=== PATIENT | male | born 1970 | race Caucasian/White ===

== ENCOUNTER 2020-07-11 16:20 | Emergency (ER) | payer BC ==
--- OUTSIDE RECORDS SUMMARY | 2020-07-11 16:23 | XMS REPORT | Continuity of Care Document ---
:1970 Author Organization [facility] t Address [address] [place] [address] Dr. Saeed [address] [place] [id number] Care Team Providers Name Role Phone Lab, William Hanna I Attending Clinician Unavailable Problems This patient has no known problems. Allergies, Adverse Reactions, Alerts This patient has no known allergies or adverse reactions. Medications This patient has no known medications. Procedures This patient has no known procedures. Encounters Start End Encounter Admission Attending Care Care Encounter Source Date/Time Date/Time Type Type Clinicians Facility Department ID 2019-11-24 2019-11-24 Laboratory Lab, [facility] [id number] 16:24:10 16:44:10 Only William Pob I [facility] [id number] [place] [id number] Gal [phone] nal [address] Results This patient has no known results.
[2020-07-11 17:44] LABS: Absolute Lymphocytes (CBC) 2.2 K/uL (0.7-4.9); Basophils % 1.5 % (0-1.3); Hematocrit 47.4 % (39.6-49.0); Lymphocytes % 27.7 % (15.3-44.8); MPV 7.8 fL (7.6-11.3); RBC Red Blood Cell Count 5.38 M/uL (4.33-5.43)
[2020-07-11 18:03] LABS: Protime INR 0.97
--- NOTE | 2020-07-11 18:55 | RAD REPORT ---
EXAM DESCRIPTION: RAD - Chest Pa And Lat (2 Views) - 07/11/2020 5:18 pm CLINICAL HISTORY: DYSPNEA COMPARISON: None TECHNIQUE: Frontal and lateral views of the chest were obtained. FINDINGS: The lungs are underinflated. No dense consolidation in the right lung field or upper left lung field. Parenchymal stranding and patchy opacification in the lower left lung field present parti ally obscuring the left heart border. Finding is suspicious for a lingula pneumonia and can be correl ated with exam findings. No failure or volume overload. Trachea is midline. Heart size is normal and central vasculature is within normal limits. No pleural effusion or pneumothorax seen. No acute bony finding noted. No ao rtic abnormality. IMPRESSION: Suspected pneumonia in the lingula left upper lobe.
[2020-07-11] MEDS ORDERED: Levofloxacin 750mg IV 750 MG/150 ML BAG IV ONE (19:26)
[2020-07-11 19:29] LABS: ALT/SGPT 52 U/L (12-78); AST/SGOT 35 U/L (15-37); Albumin 3.7 g/dL (3.4-5.0); BUN Blood Urea Nitrogen 16 mg/dL (7-18); Bicarbonate 25 mmol/L (21-32); Bilirubin Direct < 0.1 mg/dL (0-0.2); Bilirubin Total 0.3 mg/dL (0.2-1.0); C-Reactive Protein 8.28 mg/L (<3.00); Ferritin 764.2 ng/mL (26-388); Glucose Level 113 mg/dL (74-106); NT PRO-BNP 36 pg/mL (<125); Potassium 3.8 mmol/L (3.5-5.1); Sodium Level 140 mmol/L (136-145); Troponin (Emerg Dept Use Only) < 0.02 ng/mL (0.0-0.045)
[2020-07-11 19:36] LABS: Alkaline Phosphatase ND U/L (45-117)
[2020-07-11 20:20] LABS: SARS-COV-2 RT PCR POSITIVE (NEGATIVE)
--- NOTE | 2020-07-11 20:38 | RAD REPORT ---
EXAM DESCRIPTION: CT - Thorax W/ Con - 07/11/2020 7:54 pm CLINICAL HISTORY: abnormal CXR;Pain COMPARISON: Chest Pa And Lat (2 Views) dated 07/11/2020 TECHNIQUE: Dynamically enhanced 5 mm thick images of the chest were obtained during administration o f 100 mL non-ionic IV contrast. All CT scans are performed using dose optimization technique as appropriate and may include automated exposure control or mA/KV adjustment according to patient size. FINDINGS: Airspace opacification is present in the posterolateral left midlung field extending into the lingula. Patchy airspace opacification present as well in the superior aspect of the left lower l obe with patchy airspace opacification present in the posterior to midportion of the right lower lobe and in the lateral aspect of the right middle lobe. No pleural thickening or pleural effusion. No pn eumothorax. No chest wall mass or abnormal axillary lymphadenopathy. No abnormal mediastinal or hilar mass or lymphadenopathy seen. IMPRESSION: Multifocal pneumonia changes are present most prominent in the midportion and lingula of the left upper lobe. Findings are not classically COVID-19 pneumonia but can be correlated with COVID testing. Bilateral n on COVID viral pneumonia is primary consideration. A multifocal bacterial pneumonia is possible but t his would be more atypical in presentation.
--- NOTE | 2020-07-11 20:47 | ER ---
Nurse's Notes [facility] Name: Mohinder Larson Age: 49 yrs Sex: Male : 1970 Arrival Date: 07/11/2020 Time: 16:24 Bed 6 Private MD: Diagnosis: SARS-associated coronavirus as the cause of diseases classified elsewhere;Unspecified bacterial pneumonia Presentation: 07/11 16:33 Chief complaint: Patient states: been sick since last Wednesday07/01/2020. Sore throat, ca1 coughing, chills. Had rapid Covid testing done 07/01/2020 negative. Another rapid Covid test done 07/03/2020, negative. Was on Tamiflu for Flu, completed. Still NOT feeling better. Wednesday was at my PCP and was prescribed Prednisone, Azithromycin, Albuterol inhaler, Benzonatate. Still having bad cough and when I cough, it's really hard to breathe. Coronavirus screen: Client denies travel out of the [place] in the last 14 days. chills, cough unrelated to allergies, difficulty breathing, Client presents with at least one sign or symptom that may indicate coronavirus-19. Standard/surgical mask placed on the client. Provider contacted for isolation considerations. The client reports previous COVID testing was negative. Date of collection: July 03, 2020. Ebola Screen: Patient negative for fever greater than or equal to 101.5 degrees Fahrenheit, and additional compatible Ebola Virus Disease symptoms Patient denies exposure to infectious person. Patient denies travel to an Ebola-affected area in the 21 days before illness onset. No symptoms or risks identified at this time. Initial Sepsis Screen: Does the patient meet any 2 criteria? No. Patient's initial sepsis screen is negative. Does the patient have a suspected source of infection? No. Patient's initial sepsis screen is negative. Risk Assessment: Do you want to hurt yourself or someone else? Patient reports no desire to harm self or others. Onset of symptoms was July 01, 2020. 16:33 Method Of Arrival: Ambulatory ca1 16:33 Acuity: KAREN 3 ca1 Historical: - Allergies: 16:41 No Known Allergies; ca1 - Home Meds: 16:41 None [Active]; ca1 - PMHx: 16:41 None; ca1 - PSHx: 16:41 None; ca1 - Immunization history:: Flu vaccine is not up to date. - Social history:: Smoking status: Patient denies any tobacco usage or history of. Screenin:35 Abuse screen: Denies threats or abuse. Denies injuries from another. Nutritional hb screening: No deficits noted. Tuberculosis screening: No symptoms or risk factors identified. Fall Risk None identified. Assessment: 17:15 General: Appears in no apparent distress. Behavior is calm, cooperative. Pain: Denies hb pain. Neuro: Level of Consciousness is awake, alert, obeys commands, Oriented to person, place, time, situation. Cardiovascular: Patient's skin is warm and dry. Rhythm is sinus tachycardia. Respiratory: Reports shortness of breath at rest on exertion Airway is patent Respiratory effort is even, unlabored, Respiratory pattern is tachypnea. GI: No signs and/or symptoms were reported involving the gastrointestinal system. : No signs and/or symptoms were reported regarding the genitourinary system. EENT: No signs and/or symptoms were reported regarding the EENT system. Derm: Skin is pink, warm \T\ dry. Musculoskeletal: No signs and/or symptoms reported regarding the musculoskeletal system. 18:30 Reassessment: Patient appears in no apparent distress at this time. Patient and/or hb family updated on plan of care and expected duration. Pain level reassessed. Patient is alert, oriented x 3, equal unlabored respirations, skin warm/dry/pink. 19:45 General: Appears in no apparent distress. comfortable, Behavior is calm, cooperative. rr5 Neuro: Level of Consciousness is awake, alert, obeys commands, Oriented to person, place, time. Cardiovascular: Capillary refill < 3 seconds Patient's skin is warm and dry. Respiratory: Reports shortness of breath at rest on exertion Airway is patent Respiratory effort is even, unlabored, Respiratory pattern is regular, symmetrical. Derm: Skin is intact, is healthy with good turgor, Skin is pink, warm \T\ dry. Musculoskeletal: No signs and/or symptoms reported regarding the musculoskeletal system. 21:00 Reassessment: Patient appears in no apparent distress at this time. Patient and/or wh family updated on plan of care and expected duration. Pain level reassessed. Patient is alert, oriented x 3, equal unlabored respirations, skin warm/dry/pink. Vital Signs: 16:33 BP 151 / 101; Pulse 102; Resp 16 S; Temp 97.7(TE); Pulse Ox 97% on R/A; Weight 104.33 ca1 kg (R); Height 5 ft. 10 in. (177.80 cm) (R); Pain 0/10; 17:55 BP 142 / 91; Pulse 96; Resp 16; Pulse Ox 98% ; sv 18:45 BP 147 / 95; Pulse 89; Resp 15; Pulse Ox 99% on R/A; hb 19:44 BP 146 / 89; Pulse 85; Resp 17; Pulse Ox 96% ; rr5 21:00 BP 157 / 95; Pulse 90; Resp 18; Pulse Ox 97% on R/A; wh 16:33 Body Mass Index 33.00 (104.33 kg, 177.80 cm) ca1 ED Course: 16:24 Patient arrived in ED. bg2 16:40 Triage completed. ca1 16:41 Arm band placed on right wrist. ca1 16:45 Charli Batres PA is PHCP. jr8 16:45 Helder Foley MD is Attending Physician. jr8 17:17 XRAY Chest Pa And Lat (2 Views) In Process Unspecified. EDMS 17:28 EKG done, by ED staff, reviewed by Charli TURNER. sv 17:29 Inserted saline lock: 20 gauge in right antecubital area, using aseptic technique. hb Blood collected. 17:35 Michelle Honeycutt, RN is Primary Nurse. hb 17:35 Patient has correct armband on for positive identification. Bed in low position. Call hb light in reach. 17:38 Lactate Sent. hb 17:38 BMP Sent. hb 17:38 Flu Sent. hb 17:38 Ferritin Sent. hb 17:38 D-Dimer Sent. hb 17:38 CBC with Diff Sent. hb 17:38 C-Reactive Protein Sent. hb 19:55 CT Chest W/ Con In Process Unspecified. EDMS 20:23 Notified Nurse Practitioner and/or Physician Tight Cooper of a critical lab result(s), dm5 COVID pos. 21:15 No provider procedures requiring assistance completed. IV discontinued, intact, wh bleeding controlled, No redness/swelling at site. Administered Medications: 19:15 Drug: LevaQUIN 750 mg Volume: 150 ml; Route: IVPB; Infused Over: 90 mins; Site: right wh antecubital; 21:16 Follow up: Response: No adverse reaction; IV Status: Completed infusion Outcome: 20:46 Discharge ordered by MD. bah 21:15 Discharged to home ambulatory. 21:15 Condition: stable 21:15 Discharge instructions given to patient, Instructed on discharge instructions, follow up and referral plans. medication usage, POC Demonstrated understanding of instructions, follow-up care, medications, POC Prescriptions given X 1. 21:16 Patient left the ED. Signatures: Dispatcher [employer] EDMS Annabelle Pabon, RN RN dm5 Felicia Hamilton RN RN sv Charli Batres PA PA jr8 Rebeca Hunter bg2 Michelle Honeycutt RN RN Rashmi Charles RN DIANA Luís Mcgarry RN RN rr5 Ashwini, Diana RN RN ca1 Corrections: (The following items were deleted from the chart) 16:42 16:33 Chief complaint: Patient states: been sick since last Wednesday07/01/2020. Sore ca1 throat, coughing, chills. Had rapid Covid testing done 07/01/2020 negative. Another rapid Covid test done 07/03/2020, negative. Was on Tamiflu for Flu, completed. Still NOT feeling better. Wednesday was at my PCP and was prescribed Prednisone, Azithromycin, Albuterol inhaler, Benzonatate. Still having bad cough and when I cough, it's really hard to breathe. ca1 18:48 17:37 CORONAVIRUS+MR.LAB.DANIELLEZ drawn and sent. EDCA
--- NOTE | 2020-07-11 20:48 | EDPHYS ---
Physician Documentation [facility] Name: Mohinder Larson Age: 49 yrs Sex: Male : 1970 Arrival Date: 07/11/2020 Time: 16:24 Bed 6 Private MD: ED Physician Helder Foley HPI: 07/12 20:07 This 49 yrs old Male presents to ER via Ambulatory with complaints of jr8 Breathing Difficulty. 07/11 16:50 The patient has shortness of breath at rest. Onset: The symptoms/episode began/occurred jr8 last week. Patient reports SOB and cough since 07/01. He has been rapid tested twice and both tests are negative. His PCP has treated him for COVID but told him to report to ED as he has not improved. He denies edema, smoking, or CP. . Historical: - Allergies: 16:41 No Known Allergies; ca1 - Home Meds: 16:41 None [Active]; ca1 - PMHx: 16:41 None; ca1 - PSHx: 16:41 None; ca1 - Immunization history:: Flu vaccine is not up to date. - Social history:: Smoking status: Patient denies any tobacco usage or history of. ROS: 16:52 Cardiovascular: Negative for chest pain, palpitations, and edema, Abdomen/GI: Negative jr8 for abdominal pain, nausea, vomiting, diarrhea, and constipation, MS/Extremity: Negative for injury and deformity, Skin: Negative for injury, rash, and discoloration, Neuro: Negative for headache, weakness, numbness, tingling, and seizure. 16:52 Cardiovascular: Positive for orthopnea. 16:52 Respiratory: Positive for cough, with no reported sputum, shortness of breath, at rest. Exam: 16:52 Head/Face: Normocephalic, atraumatic. Chest/axilla: Normal chest wall appearance and jr8 motion. Nontender with no deformity. No lesions are appreciated. Abdomen/GI: Soft, non-tender, with normal bowel sounds. No distension or tympany. No guarding or rebound. No evidence of tenderness throughout. Skin: Warm, dry with normal turgor. Normal color with no rashes, no lesions, and no evidence of cellulitis. MS/ Extremity: Pulses equal, no cyanosis. Neurovascular intact. Full, normal range of motion. Neuro: Awake and alert, GCS 15, oriented to person, place, time, and situation. Cranial nerves II-XII grossly intact. Motor strength 5/5 in all extremities. Sensory grossly intact. Cerebellar exam normal. Normal gait. 16:52 Cardiovascular: Rate: tachycardic, Rhythm: regular, Pulses: Pulses are 2+ in right radial artery and left radial artery. Heart sounds: normal, Edema: is not appreciated. 16:52 Respiratory: the patient does not display signs of respiratory distress, Respirations: normal, Breath sounds: decreased breath sounds, that are mild, are scattered. Vital Signs: 16:33 BP 151 / 101; Pulse 102; Resp 16 S; Temp 97.7(TE); Pulse Ox 97% on R/A; Weight 104.33 ca1 kg (R); Height 5 ft. 10 in. (177.80 cm) (R); Pain 0/10; 17:55 BP 142 / 91; Pulse 96; Resp 16; Pulse Ox 98% ; sv 18:45 BP 147 / 95; Pulse 89; Resp 15; Pulse Ox 99% on R/A; hb 19:44 BP 146 / 89; Pulse 85; Resp 17; Pulse Ox 96% ; rr5 21:00 BP 157 / 95; Pulse 90; Resp 18; Pulse Ox 97% on R/A; wh 16:33 Body Mass Index 33.00 (104.33 kg, 177.80 cm) ca1 MDM: 16:54 Data interpreted: hand i tube bender: rate is 102 beats/min, rhythm is normal sinus jr8 rhythm, Pulse oximetry: on room air is 97 %. Interpretation: normal. 16:56 Patient medically screened. [facility] 20:44 Data reviewed: vital signs, nurses notes, lab test result(s), EKG, radiologic studies, jr CT scan, plain films. Counseling: I had a detailed discussion with the patient and/or guardian regarding: the historical points, exam findings, and any diagnostic results supporting the discharge/admit diagnosis, lab results, radiology results, the need for outpatient follow up, a family practitioner, to return to the emergency department if symptoms worsen or persist or if there are any questions or concerns that arise at home. ED course: discussed with patient atypical findings on CT for COVID or bacteria. Patient is covid positive so most likely it is viral etiology. Will cover with levaquin for atypical bacteria that could still be present.. Patient good with this. No need for steroids at this time. 07/11 16:50 Order name: BMP [facility] 07/11 16:50 Order name: C-Reactive Protein 07/11 16:50 Order name: CBC with Diff 07/11 16:50 Order name: D-Dimer [facility] 07/11 16:50 Order name: Ferritin [facility] 07/11 16:50 Order name: Flu 07/11 16:50 Order name: Lactate [facility] 07/11 16:50 Order name: LFT's; Complete Time: 19:38 07/11 16:50 Order name: Procalcitonin; Complete Time: 18:41 [facility] 07/11 16:50 Order name: PT-INR; Complete Time: 18:21 [facility] 07/11 16:50 Order name: Ptt, Activated; Complete Time: 18:21 [facility] 07/11 16:50 Order name: Troponin (emerg Dept Use Only); Complete Time: 19:38 [facility] 07/11 16:50 Order name: BNP; Complete Time: 19:38 [facility] 07/11 16:50 Order name: EKG; Complete Time: 16:52 07/11 16:50 Order name: Cardiac monitoring; Complete Time: 17:37 [facility] 07/11 16:50 Order name: Droplet/Contact Precautions; Complete Time: 17:37 07/11 16:50 Order name: EKG - Nurse/Tech; Complete Time: 17:37 [facility] 07/11 16:50 Order name: XRAY Chest Pa And Lat (2 Views); Complete Time: 18:56 [facility] 07/11 16:51 Order name: Basic Metabolic Panel; Complete Time: 19:38 EDMS 07/11 16:51 Order name: C-Reactive Protein; Complete Time: 19:38 EDMS 07/11 16:51 Order name: CBC with Automated Diff; Complete Time: 18:21 EDMS 07/11 16:51 Order name: D-Dimer; Complete Time: 18:21 EDMS 07/11 16:51 Order name: Ferritin; Complete Time: 19:38 EDMS 07/11 16:51 Order name: Lactate; Complete Time: 18:21 EDMS 07/11 19:39 Order name: CT Chest W/ Con; Complete Time: 20:40 [facility] 07/11 20:21 Order name: COVID-19/FLU A+B; Complete Time: 20:28 EDAZ 07/11 16:50 Order name: IV Start; Complete Time: 17:37 [facility] 07/11 16:50 Order name: Labs collected and sent; Complete Time: 17:37 [facility] 07/11 16:50 Order name: O2 Per Protocol; Complete Time: 17:37 [facility] 07/11 16:50 Order name: O2 Sat Monitoring; Complete Time: 17:37 [facility] Administered Medications: 19:15 Drug: LevaQUIN 750 mg Volume: 150 ml; Route: IVPB; Infused Over: 90 mins; Site: right antecubital; 21:16 Follow up: Response: No adverse reaction; IV Status: Completed infusion Disposition: 07/12 19:35 Co-signature as Attending Physician, Helder Foley MD I agree with the assessment and 4 plan of care. Disposition: 07/11/20 20:46 Discharged to Home. Impression: SARS-associated coronavirus as the cause of diseases classified elsewhere, Unspecified bacterial pneumonia. - Condition is Stable. - Discharge Instructions: COVID-19. - Prescriptions for Levaquin 500 mg Oral Tablet - take 1 tablet by ORAL route once daily for 7 days; 7 tablet. - Medication Reconciliation Form, Thank You Letter, Antibiotic Education, Prescription Opioid Use form. - Follow up: Private Physician; When: 1 week; Reason: Recheck today's complaints, Continuance of care, Re-evaluation by your physician. - Problem is new. - Symptoms have improved. - Notes: Vitamin C 1 gram 2-3x a day Zinc 100 mg Daily Melatonin 10mg at night Aspirin 81 mg daily Vitamin D 4,000IU a day Signatures: Dispatcher [employer] EDAZ Charli Batres PA PA jr8 Rashmi Charles RN RN Helder Foley MD MD 4 Diana Maradiaga RN RN [facility] Corrections: (The following items were deleted from the chart) 07/11 18:48 16:52 CORONAVIRUS+MR.LAB.BRZ ordered. EDAZ EDMS 19:44 16:51 Influenza Screen (A ordered. EDAZ EDMS 21:16 20:46 07/11/2020 20:46 Discharged to Home. Impression: SARS-associated coronavirus as wh the cause of diseases classified elsewhere; Unspecified bacterial pneumonia. Condition is Stable. Forms are Medication Reconciliation Form, Thank You Letter, Antibiotic Education, Prescription Opioid Use. Follow up: Private Physician; When: 1 week; Reason: Recheck today's complaints, Continuance of care, Re-evaluation by your physician. Problem is new. Symptoms have improved. jr8
[2020-07-11 21:26] VITALS: TEMP 97.7
[2020-07-11 21:31] VITALS: BP 157/95; O2SAT 97
== END 2020-07-11 21:16 | disposition home or self-care (01) ==
LOC: ER 16:20
DX: U07.1 COVID-19 (principal); J15.9 Unspecified bacterial pneumonia
CPT/HCPCS: 96365; 93005; 85025; 80048; 36415; 85610; 85379; 80076; 83605; 85730; 84484; 82728; 84145; 83880; 0240U; 86140; 71260; 71046; 99284; 96366; Q9967